=== PATIENT | male | born 1950 | race Caucasian/White ===

== ENCOUNTER 2017-09-12 10:31 | Day surgery (SDC) | payer BC ==
[~2017-09-12] VITALS: Ht 182.9 cm; Wt 99.5 kg
[2017-09-12 10:57] VITALS: BP 139/94; PULSE 80; TEMP 97.8
[2017-09-12] MEDS ORDERED: VISION VITAMINS1 TA1 PO (11:46)
[2017-09-12] MEDS ORDERED: MULTIPLE VITAMI1 CAP PO (11:46)
[2017-09-12] MEDS ORDERED: OMEGA-3 1000 MG1 CAP PO (11:47)
[2017-09-12] MEDS ORDERED: NATURAL FLAX1000 MG PO (11:47)
[2017-09-12] MEDS ORDERED: CHOLESTOFF PLUS PO (11:48)
[2017-09-12] MEDS ORDERED: ASPIRIN 81M81 MG/TA2 PO (11:49)
[2017-09-12] MEDS ORDERED: THE MEDICINE S200 M2 PO (11:49)
[2017-09-12] MEDS ORDERED: VITAMIN E1000 U/CAP PO (11:50)
[2017-09-12] MEDS ORDERED: VITAMIN A10k PO (11:50)
[2017-09-12] MEDS ORDERED: MASON NATURAL600 MG PO (11:51)
[2017-09-12] MEDS ORDERED: PRILOSEC 20MG20 MG PO (11:52)
[2017-09-12] MEDS ORDERED: TYLENOL 8 HR PO (11:53)
[2017-09-12] MEDS ORDERED: MOTRIN 800800 MG/TAB PO (11:54)
[2017-09-12] MEDS ORDERED: FLONASEALLERGY NS (11:54)
[2017-09-12] MEDS ORDERED: NORCO 325 MG-51 TAB PO (11:55)
[2017-09-12 13:51] VITALS: TEMP 98.2
[2017-09-12 14:20] VITALS: BP 139/92; PULSE 87
[2017-09-12 14:35] VITALS: BP 142/75; PULSE 90
[2017-09-12 14:50] VITALS: BP 141/78; PULSE 80
[2017-09-12] MEDS ORDERED: CIPRO 500MG TA500 MG PO (14:51)
[2017-09-12 15:05] VITALS: BP 133/92; PULSE 76
== END 2017-09-12 15:40 | disposition home or self-care (01) ==
LOC: SDCO 10:31
DX: N20.2 Calculus of kidney with calculus of ureter (principal); Z87.442 Personal history of urinary calculi; Z90.49 Acquired absence of other specified parts of digestive tract; Z79.82 Long term (current) use of aspirin; Z80.52 Family history of malignant neoplasm of bladder; Z80.42 Family history of malignant neoplasm of prostate; Z88.8 Allergy status to other drugs, medicaments and biological substances; Z87.891 Personal history of nicotine dependence; Z82.49 Family history of ischemic heart disease and other diseases of the circulatory system; Z95.1 Presence of aortocoronary bypass graft; Z90.79 Acquired absence of other genital organ(s); K21.9 Gastro-esophageal reflux disease without esophagitis; M79.7 Fibromyalgia; M19.90 Unspecified osteoarthritis, unspecified site
CPT/HCPCS: C1769; C2617; J0690; J1100; J2405; J2704; J3010; J7120; Q9967